=== PATIENT | male | born 1950 | race Caucasian/White ===

== ENCOUNTER 2020-11-02 10:51 | Emergency (ER) | payer MEDICARE, BC, SELFPAY ==
[2020-11-02 10:56] VITALS: BP 161/91; PULSE 79; RESP 16; TEMP 36.7; O2SAT 97; BMI 24.3
--- NOTE | 2020-11-02 11:13 | ED_ITS ---
HPI - Psych General: Chief Complaint: Psychiatric Symptoms Stated Complaint: EVAL Time Seen by Provider: 11/02/20 10:59 Source: patient and EMS Mode of arrival: EMS Limitations: no limitations History of Present Illness: HPI Narrative: Patient is a nice 70-year-old male who presents to ED today via EMS from outlying clinic after he suggested he was battling with depression and had some suicidal thoughts Saturday during a suicide assessment screening. He initially went to the clinic for a cerumen impaction. Patient tells me he has battled with depression over the past 8 months after losing his . He states at one point he was on Prozac and Wellbutrin but has not taken these medications in the past 4 to 5 months. He states he felt like his depression was worsening so a few days ago begin taking a half a tablet of Wellbutrin. He states Saturday night he felt like he was a dark place so decided to discontinue the medication. He states he did have passive thoughts of suicide Saturday but had absolutely no intention of ever harming himself. No plan. He currently is not suicidal. He has no previous suicide attempts. No high risk behaviors. MD complaint: feels depressed Onset (ago): day(s) Duration: constant History of same: Yes Relieving factors: none Exacerbating factors: medication Context: significant life stressor (loss of his 8 months ago) Associated psychiatric symptoms: depression Associated symptoms: Reports depression; Deny auditory hallucinations, visual hallucinations, homicidal ideation or suicidal ideation Treatments prior to arrival: none Review of Systems Psych: Reports: depression, sleeping more and loss of interest; Denies: panic attacks, paranoia, visual hallucinations, auditory hallucinations, suicidal ideation or homicidal ideation [facility] ED PFSH: Family History (Updated 03/14/19 @ 11:25 by Navya Linn LPN) Other Heart disease Rheumatoid arthritis Stroke Social History (Updated 03/14/19 @ 11:25 by Navya Linn LPN) Smoking and tobacco status: current every day smoker pipe Quit status (tobacco): not considering quitting Alcohol intake: never Current gender identity: Male Physical Exam Const: COMMON NORMALS: no acute distress, average body habitus, patient oriented x3, no limitations, healthy appearing, alert and well nourished ORIENTATION/CONSCIOUSNESS: Yes awake, Yes oriented to person, Yes oriented to place and Yes oriented to time Neuro: COMMON NORMALS: patient oriented x3 SENSORIUM/ORIENTATION: Yes alert, Yes oriented to person, Yes oriented to place and Yes oriented to time Psych: COMMON NORMALS: mental status grossly normal, Normal thought process present, cooperative, normal affect, speech normal, activity/motor behavior normal, denies hallucinations, denies homicidal ideation and denies suicidal ideation APPEARANCE: Yes grossly normal ATTITUDE: Yes calm ACTIVITY/MOTOR BEHAVIOR: Yes appropriate eye contact SPEECH: Yes normal speech MOOD & AFFECT: Yes euthymic mood THOUGHT PROCESS: Normal thought process present THOUGHT CONTENT: Yes Normal thought content present ATTENTION/CONCENTRATION: Yes attention grossly intact and Yes concentration nicole ssly intact MEMORY/COGNITION: Yes memory grossly intact and Yes cognition grossly intact INSIGHT: Good insight present (Psych) JUDGEMENT: Good judgement present (Psych) Course ED course: Patient is not actively suicidal. He would like to go home. Will page Dr. Horn and have him perform psychiatric assessment. Consultations: Consultation #1: Dr. Horn-will assess patient in ED Vital Signs: Vital signs: Vital Signs Temperature 98.0 F 11/02/20 10:56 Pulse Rate 79 11/02/20 10:56 Respiratory Rate 16 11/02/20 10:56 Blood Pressure 161/91 11/02/20 10:56 Pulse Oximetry 97 11/02/20 10:56 MDM - Psych MDM Narrative: Medical decision making narrative: Patient has underwent psychiatric evaluation by Dr. Horn. Please refer to his specific note regarding that exam. He is recommending patient be placed on 5 mg Lexapro and is stable for discharge. Discharge Plan Discharge Patient Disposition: Home Clinical Impression: Depression Qualifiers: Depression Type: major depressive disorder Major depression recurrence: recurrent Active/Remission status: currently active Major depression episode severity: moderate Qualified Code(s): F33.1 - Major depressive disorder, recurrent, moderate Condition: Stable Prescriptions: New Lexapro 5 mg tablet 5 mg PO DAILY Qty: 30 RF: 0 No Action Vitamin B-12 500 mcg Tablet 500 mcg PO DAILY RF: 0 Vitamin D3 50 mcg (2,000 unit) Tablet 50 mcg PO DAILY RF: 0 Fish Oil 300-1,000 mg Capsule 1 cap PO DAILY RF: 0 Flintstones Complete Tablet,Chewable 1 tab PO DAILY RF: 0 turmeric 400 mg Capsule 400 mg PO DAILY RF: 0 Cumin 10 tab PO DAILY RF: 0 vitamin E 1 tab PO DAILY RF: 0 Discharge Orders: Discharge ED (Routine); Ordered 11/02/20 Ordered By: Annelise Presley Referrals: Praful Butt PA [Primary Care Provider] - Activity Restrictions/Additional Instructions: As we discussed the psychiatrist recommends starting you on 5 mg of Lexapro daily for treatment of your depression. [facility] Case management will work on getting you a follow-up appointment at [facility]. You need to return to the emergency department immediately or contact 911 if you begin having any thoughts of wanting to harm yourself or others. You may also return to the ED for worsening complaints of depression or any other concerns you may have. 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
--- NOTE | 2020-11-04 10:10 | DCPLANNER ---
talent management manager had message to speak with patient about services at [facility]. talent management manager called and spoke with patient, and informed him of how to get started with services at [facility] either at the [facility], or the [facility]
== END 2020-11-02 13:09 | disposition home or self-care (01) ==
PROVIDERS: Emergency Provider Physician Assistant; PCP Emergency Medicine
DX: F33.1 Major depressive disorder, recurrent, moderate (principal); F17.290 Nicotine dependence, other tobacco product, uncomplicated
CPT/HCPCS: 99283

== ENCOUNTER → 2022-07-19 14:42 | Outpatient (BNVA) | payer OTHER, MEDICARE, SELFPAY | PROVIDERS: PCP Emergency Medicine; Referring Provider Nurse Practitioner; Visit Provider Nurse Practitioner Family | DX: L82.0 Inflamed seborrheic keratosis (principal); L57.0 Actinic keratosis; L85.3 Xerosis cutis; L57.8 Other skin changes due to chronic exposure to nonionizing radiation; L81.4 Other melanin hyperpigmentation; L82.1 Other seborrheic keratosis; Z71.89 Other specified counseling | CPT/HCPCS: 17000; 17003; 17110; 99203 ==

== ENCOUNTER → 2023-06-27 10:23 | Outpatient (BNVA) | payer OTHER, SELFPAY | PROVIDERS: PCP Emergency Medicine; Visit Provider Nurse Practitioner Family | DX: L82.0 Inflamed seborrheic keratosis (principal); L57.0 Actinic keratosis; L85.3 Xerosis cutis; L57.8 Other skin changes due to chronic exposure to nonionizing radiation; L81.4 Other melanin hyperpigmentation; D22.5 Melanocytic nevi of trunk; L82.1 Other seborrheic keratosis | CPT/HCPCS: 17000; 17110; 99213 ==

== ENCOUNTER → 2024-06-26 09:42 | Outpatient (BNVA) | payer OTHER, SELFPAY | PROVIDERS: PCP Emergency Medicine; Visit Provider Nurse Practitioner Family | DX: L73.9 Follicular disorder, unspecified (principal); L60.8 Other nail disorders; D23.122 Other benign neoplasm of skin of left lower eyelid, including canthus; L57.8 Other skin changes due to chronic exposure to nonionizing radiation; X32.XXXA Exposure to sunlight, initial encounter; L81.4 Other melanin hyperpigmentation; L82.1 Other seborrheic keratosis; L57.0 Actinic keratosis | CPT/HCPCS: 17000; 99214 ==